=== PATIENT | female | born 1995 | race Caucasian/White ===

== ENCOUNTER 2021-09-27 19:53 | Emergency (ER) | payer OTHER, MEDICAID, SELFPAY ==
[2021-09-27 19:57] VITALS: BP 145/81; PULSE 83; RESP 18; TEMP 36.4; O2SAT 97
[2021-09-27] MEDS: TET,DIPH,PERTUSS(ACELL),VAC/PF 0.5 ML SYRINGE IM (20:03)
== END 2021-09-28 00:26 | disposition left against medical advice (07) ==
PROVIDERS: Emergency Provider Emergency Medicine
DX: Z23 Encounter for immunization (principal)
CPT/HCPCS: 90471; 99283; 90715

== ENCOUNTER → 2023-03-10 14:16 | Outpatient (CLI) | payer SELFPAY | PROVIDERS: Visit Provider Physician Assistant | DX: R30.0 Dysuria (principal) | CPT/HCPCS: 87086 ==

== ENCOUNTER → 2023-03-13 10:39 | Outpatient (CLI) | payer SELFPAY ==
[2023-03-13 12:35] LABS: Urine N gonorrhoeae NOT DETECTED
[2023-03-13 12:38] LABS: Urine Chlamydia NOT DETECTED
== END ==
PROVIDERS: Visit Provider Nurse Practitioner Family
DX: Z11.3 Encounter for screening for infections with a predominantly sexual mode of transmission (principal); R30.0 Dysuria; N89.8 Other specified noninflammatory disorders of vagina
CPT/HCPCS: 87086; 87210; 87491; 87591

== ENCOUNTER 2023-06-14 15:06 | Emergency (ER) | payer BC, SELFPAY ==
[2023-06-14 15:39] VITALS: BP 162/95; PULSE 120; RESP 16; TEMP 37.6; O2SAT 99; BMI 40.3
[2023-06-14 17:16] LABS: Add Manual Diff / Slide Review NO; Basophils Absolute Auto 100 /uL (0-100); Basophils Percent Auto 0.6 % (0-2); Eosinophils Absolute Auto 0 /uL (0-450); Eosinophils Percent Auto 0.2 % (2-4); Hematocrit 39.4 % (36-46); Hemoglobin 13.2 g/dL (12.0-16.0); Lymphocytes Absolute Auto 2400 /uL (1100-4500); Lymphocytes Percent Auto 16.5 % (25-40); Mean Corpuscular HGB Conc 33.5 % (30-36); Mean Corpuscular Hemoglobin 30.4 PG (26-34); Mean Corpuscular Volume 90.8 fL (80-100); Monocytes Absolute Auto 700 /uL (0-900); Monocytes Percent Auto 4.4 % (3-14); Neutrophils Absolute Auto 11600 /uL (1500-7000); Neutrophils Percent Auto 78.3 % (50-75); Platelet Count 304 X10^3/uL (150-400); Red Blood Cell Count 4.34 X10^6/uL (4.0-5.2); Red Cell Distribution Width 13.2 % (11.6-14.8); White Blood Cell Count 14.8 X10^3/uL (4.5-11.0)
[2023-06-14] MEDS: SODIUM CHLORIDE 0.9% 1,000 ML 1000 ML IV (17:20)
--- NOTE | 2023-06-14 17:21 | ED.SKABFB ---
HPI - Skin/Abscess/Foreign Bdy General Chief complaint: Skin/Abscess/Foreign Body Stated complaint: painful lump under lt armpit Time Seen by Provider: 06/14/23 15:54 Source: patient Mode of arrival: Ambulatory History of Present Illness HPI narrative: 27-year-old female presents for painful swelling underneath left armpit. She states she thought it was an ingrown hair or a pimple but it quickly spread and has gotten worse. She decided to present today for evaluation. Denies fevers or chills. 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[employer]) Smoking Status: Never smoker Smoking Status: Never smoker alcohol intake frequency: holidays/special occasions only Substance Use Type: marijuana Exam Initial Vital Signs Initial Vital Signs: Vital Signs Temperature 99.7 F H 06/14/23 15:39 Pulse Rate 120 H 06/14/23 15:39 Respiratory Rate 16 06/14/23 15:39 Blood Pressure 162/95 H 06/14/23 15:39 Pulse Oximetry 99 06/14/23 15:39 Oxygen Delivery Method Room Air 06/14/23 15:39 Const: Awake, alert, no acute distress, nontoxic appearing MSK: Atraumatic, full range of motion, pulses equal Skin: Warm, Dry, palm sized area of cellulitis underneath left armpit, no abscess, no drainage Neuro: AO x3, CN II-XII grossly intact, moves all extremities Course Orders Ordered: Discontinued Medications Sodium Chloride (Normal Saline 0.9%) 1,000 mls @ 1,000 mls/hr IV BOLUS ONE Stop: 06/14/23 18:08 Last Infusion: 06/14/23 17:40 Dose: 0 mls/hr Documented By: Admin: 06/14/23 17:20 Dose: 1,000 mls/hr Documented By: WALTER Morphine Sulfate (Morphine 4 Mg/Ml Inj) 4 mg IV NOW ONE Stop: 06/14/23 15:55 Last Admin: 06/14/23 17:22 Dose: Not Given Documented By: WALTER Oxycodone HCl (Oxycodone Ir 5 Mg Tablet) 5 mg PO NOW ONE Stop: 06/14/23 17:22 Last Admin: 06/14/23 17:35 Dose: 5 mg Documented By: WALTER Vital Signs Vital signs: Vital Signs - 8 hr 06/14/23 15:39 Temperature 99.7 F H Pulse Rate 120 H Respiratory Rate 16 Blood Pressure 162/95 H Pulse Oximetry 99 Oxygen Delivery Method Room Air MDM - Skin/Abscess/Foreign Bdy Differential Diagnosis Differential diagnosis: Likely abscess of skin or subcutaneous tissue, viral exanthem and dermatophytosis Lab Data 06/14/23 16:03 06/14/23 16:03 Labs: Lab Results 06/14/23 Range/Units 16:03 WBC 14.8 H (4.5-11.0) X10^3/uL RBC 4.34 (4.0-5.2) X10^6/uL Hgb 13.2 (12.0-16.0) g/dL Hct 39.4 (36-46) % MCV 90.8 (80-100) fL MCH 30.4 (26-34) PG MCHC 33.5 (30-36) % RDW 13.2 (11.6-14.8) % Plt Count 304 (150-400) X10^3/uL Neut % (Auto) 78.3 H (50-75) % Lymph % (Auto) 16.5 L (25-40) % [place] % (Auto) 4.4 (3-14) % Eos % (Auto) 0.2 L (2-4) % Baso % (Auto) 0.6 (0-2) % Neut # (Auto) 37816 H (6589-3271) /uL Lymph # (Auto) 2400 (6746-1334) /uL [place] # (Auto) 700 (0-900) /uL Eos # (Auto) 0 (0-450) /uL Baso # (Auto) 100 (0-100) /uL Sodium 137 (137-145) mmol/L Potassium 3.8 (3.4-5.1) mmol/L Chloride 105 (98-107) mmol/L Carbon Dioxide 27 (22-32) mmol/L BUN 10 (7-17) mg/dL Creatinine 0.69 (0.52-1.04) mg/dL Estimated GFR > 60 (>60) mL/min BUN/Creatinine Ratio 14.5 (6-22) Glucose 134 H (70-100) mg/dL Lactate 0.8 (0.7-2.1) mmol/L Calcium 9.7 (8.4-10.2) mg/dL Total Bilirubin 1.3 (0.2-1.3) mg/dL AST 29 (14-36) IU/L ALT 26 (<35) IU/L Alkaline Phosphatase 54 (38-126) U/L Total Protein 8.5 H (6.3-8.2) g/dL Albumin 4.6 (3.5-5.0) g/dL Globulin 3.9 (1.7-4.1) g/dL Albumin/Globulin Ratio 1.2 (1.0-2.8) Procalcitonin 0.05 (<0.5) ng/mL Point of Care Testing Test Results Negative Urine Dip Bedside Urine Glucose Negative Bedside Urine Bilirubin - Negative Bedside Urine Ketone ++ 40 Urine Specific [place] 1.030 Bedside Urine Occult Blood - Negative Bedside Urine pH 6.0 Bedside Urine Protein - Negative Bedside Urine Urobilinogen - Negative Bedside Urine Nitrite - Negative Bedside Urine Leukocytes - Negative Esterase MDM Narrative Medical decision making narrative: Cellulitis under left under arm. No evidence of abscess or hidradenitis. Point of care ultrasound shows no underlying fluid collection that would be amenable to drainage. Patient counseled on lab findings, discharge on antibiotics. Counseled to draw a margin around the red area and to return if it worsens despite antibiotic treatment Discharge Plan Departure Patient Disposition: Home Clinical Impression: Cellulitis Instructions: DI for Cellulitis -- Adult Activity Restrictions/Additional Instructions: Draw a margin around the red area and keep track of it to see if it spreads. If it spreads outside of the margins please return to the emergency department for evaluation. Prescriptions: New cephalexin 500 mg capsule 500 mg PO QID Qty: 20 0RF Referrals: Meg Sullivan MD [Primary Care Provider] - Stand Alone Forms: Patient Portal/API
[2023-06-14 17:22] LABS: Lactate (Lactic Acid) 0.8 mmol/L (0.7-2.1)
[2023-06-14 17:23] LABS: Alanine Aminotransferase 26 IU/L (<35); Albumin 4.6 g/dL (3.5-5.0); Albumin Globulin Ratio 1.2 (1.0-2.8); Alkaline Phosphatase 54 U/L (38-126); Aspartate Aminotransferase 29 IU/L (14-36); BUN Creatinine Ratio 14.5 (6-22); Bilirubin Total 1.3 mg/dL (0.2-1.3); Blood Urea Nitrogen 10 mg/dL (7-17); Calcium 9.7 mg/dL (8.4-10.2); Carbon Dioxide 27 mmol/L (22-32); Chloride 105 mmol/L (98-107); Estimated Glomerular Filt Rate > 60 mL/min (>60); Globulin 3.9 g/dL (1.7-4.1); Glucose 134 mg/dL (70-100); HEMOLYSIS 16 (0-50); Potassium 3.8 mmol/L (3.4-5.1); Sodium 137 mmol/L (137-145); Total Protein 8.5 g/dL (6.3-8.2)
[2023-06-14] MEDS: OXYCODONE IR 5 MG TABLET PO (17:35)
[2023-06-14 17:36] VITALS: BP 169/97; PULSE 104; RESP 16; TEMP 37; O2SAT 100
--- NOTE | 2023-06-14 17:38 | PC.NURSE ---
Pt has redness and slight swelling to left armpit. Pt reports this came on recently and denies shaving, wearing tight clothes, or missing showers.
[2023-06-14 17:39] LABS: Procalcitonin 0.05 ng/mL (<0.5)
== END 2023-06-14 17:40 | disposition home or self-care (01) ==
PROVIDERS: Emergency Provider Emergency Medicine; PCP Family Medicine
DX: L03.112 Cellulitis of left axilla (principal)
CPT/HCPCS: 80053; 81003; 81025; 83605; 84145; 85025; 99283

== ENCOUNTER → 2023-08-03 14:39 | Outpatient (CLI) | payer BC, SELFPAY ==
--- NOTE | 2023-08-03 14:41 | DI.RAD.S_ITS ---
PROCEDURE: XR FOOT RT MIN 3V INDICATIONS: Right foot pain TECHNIQUE: 3 views of the foot were acquired. COMPARISON: None. FINDINGS: Bones: No fractures or dislocations. No suspicious bony lesions. Plantar calcaneal enthesophyte. Soft tissues: No tibiotalar joint effusion. Achilles tendon appears normal. IMPRESSION: No acute osseous abnormality. If pain persists with conservative management, consider repeat x-ray in 10-14 days or cross-sectional imaging. Dictated by: Kiet Clement M.D. on 08/03/2023 at 16:45 Approved by: Kiet Clement M.D. on 08/03/2023 at 16:45
== END ==
PROVIDERS: PCP Family Medicine; Referring Provider Nurse Practitioner Family; Visit Provider Nurse Practitioner Family
DX: M77.31 Calcaneal spur, right foot (principal); M79.671 Pain in right foot
CPT/HCPCS: 73630

== ENCOUNTER → 2023-08-24 12:33 | Outpatient (CLI) | payer BC, SELFPAY ==
[2023-08-24 13:44] LABS: Add Manual Diff / Slide Review NO; Basophils Absolute Auto 100 /uL (0-100); Basophils Percent Auto 0.9 % (0-2); Eosinophils Absolute Auto 200 /uL (0-450); Eosinophils Percent Auto 3.4 % (2-4); Hematocrit 39.4 % (36-46); Hemoglobin 13.3 g/dL (12.0-16.0); Lymphocytes Absolute Auto 2500 /uL (1100-4500); Lymphocytes Percent Auto 37.6 % (25-40); Mean Corpuscular HGB Conc 33.7 % (30-36); Mean Corpuscular Hemoglobin 30.8 PG (26-34); Mean Corpuscular Volume 91.3 fL (80-100); Monocytes Absolute Auto 300 /uL (0-900); Monocytes Percent Auto 4.6 % (3-14); Neutrophils Absolute Auto 3600 /uL (1500-7000); Neutrophils Percent Auto 53.5 % (50-75); Platelet Count 299 X10^3/uL (150-400); Red Blood Cell Count 4.32 X10^6/uL (4.0-5.2); Red Cell Distribution Width 11.8 % (11.6-14.8); White Blood Cell Count 6.7 X10^3/uL (4.5-11.0)
[2023-08-24 14:03] LABS: Erythrocyte Sedimentation Rate 25 MM/HR (0-20)
[2023-08-24 14:05] LABS: Appearance Urine UA CLEAR; Bilirubin Urine UA NEGATIVE (NEGATIVE); Color Urine UA YELLOW; Glucose Urine UA NEGATIVE (Negative); Ketones Urine UA NEGATIVE (NEGATIVE); Leukocyte Esterase Urine UA TRACE (NEGATIVE); Nitrite Urine UA NEGATIVE (Negative); Occult Blood Urine UA NEGATIVE (Negative); Protein Urine UA NEGATIVE (Negative); Specific Gravity Urine UA 1.025 (1.000-1.035); Urobilinogen Urine UA 0.2 E.U./dL (0.2)
[2023-08-24 14:07] LABS: Alanine Aminotransferase 19 IU/L (<35); Albumin 4.3 g/dL (3.5-5.0); Albumin Globulin Ratio 1.3 (1.0-2.8); Alkaline Phosphatase 50 U/L (38-126); Aspartate Aminotransferase 25 IU/L (14-36); BUN Creatinine Ratio 14.7 (6-22); Bilirubin Total 0.9 mg/dL (0.2-1.3); Blood Urea Nitrogen 11 mg/dL (7-17); Calcium 8.9 mg/dL (8.4-10.2); Carbon Dioxide 24 mmol/L (22-32); Chloride 107 mmol/L (98-107); Estimated Glomerular Filt Rate > 60 mL/min (>60); Globulin 3.4 g/dL (1.7-4.1); Glucose 105 mg/dL (70-100); HEMOLYSIS < 15 (0-50); Potassium 4.4 mmol/L (3.4-5.1); Sodium 138 mmol/L (137-145); Total Protein 7.7 g/dL (6.3-8.2); Uric Acid 4.8 mg/dL (2.5-6.2)
[2023-08-24 14:18] LABS: Rheumatoid Factor < 8.6 IU/mL (<12.0)
[2023-08-24 14:36] LABS: Thyroid Stimulating Hormone 0.535 uIU/mL (0.47-4.68)
[2023-08-24 15:06] LABS: Bacteria Urine Many (>30); Culture Indicated Urine Cult Not Indicated; RBC Urine None Seen (0-5/HPF); Squamous Epithelial Cell Urine 1-5 /HPF (0-5/HPF); Urine Volume 10mL (spun); WBC Urine 1-5/HPF (0-5/HPF)
[2023-08-26 10:40] LABS: CCP Antibodies IgG/IgA 0 units (0-19)
== END ==
PROVIDERS: PCP Family Medicine; Referring Provider Family Medicine; Visit Provider Family Medicine
DX: M25.50 Pain in unspecified joint (principal); R82.71 Bacteriuria
CPT/HCPCS: 36415; 80053; 81001; 84443; 84550; 85025; 85651; 86200; 86430; 87086

== ENCOUNTER → 2023-08-24 16:45 | Outpatient (CLI) | payer BC, SELFPAY ==
[2023-08-29 14:09] LABS: ANA Screen, IFA Negative (.)
== END ==
PROVIDERS: PCP Family Medicine; Referring Provider Family Medicine; Visit Provider Family Medicine
DX: M79.641 Pain in right hand (principal); M79.642 Pain in left hand; M25.541 Pain in joints of right hand; M25.542 Pain in joints of left hand; R70.0 Elevated erythrocyte sedimentation rate; R82.71 Bacteriuria
CPT/HCPCS: 36415; 80053; 81001; 84443; 84550; 85025; 85651; 86038; 86200; 86430; 87086

== ENCOUNTER → 2025-02-03 15:44 | Outpatient (CLI) | payer BC, SELFPAY ==
[2025-02-03 17:52] LABS: GTT (PREG) 1 Hour PP 50gm Dose 87 mg/dL (76-139)
[2025-02-03 17:53] LABS: Add Manual Diff / Slide Review NO; Hematocrit 37.6 % (36-46); Hemoglobin 12.8 g/dL (12.0-16.0); Lymphocytes Absolute Auto 2700 /uL (1100-4500); Mean Corpuscular HGB Conc 34.0 % (30-36); Mean Corpuscular Hemoglobin 30.7 PG (26-34); Mean Corpuscular Volume 90.2 fL (80-100); Platelet Count 304 X10^3/uL (150-400)
[2025-02-03 17:54] LABS: Alanine Aminotransferase 23 IU/L (<35); Albumin 3.9 g/dL (3.5-5.0); Albumin Globulin Ratio 1.3 (1.0-2.8); Alkaline Phosphatase 47 U/L (38-126); Blood Urea Nitrogen 8 mg/dL (7-17); Calcium 9.2 mg/dL (8.4-10.2); Carbon Dioxide 21 mmol/L (22-32); Chloride 106 mmol/L (98-107); Estimated Glomerular Filt Rate > 60 mL/min (>60); Globulin 3.1 g/dL (1.7-4.1); Glucose 89 mg/dL (70-99); HEMOLYSIS < 15 (0-50); Potassium 4.2 mmol/L (3.4-5.1); Sodium 137 mmol/L (137-145); Total Protein 7.0 g/dL (6.3-8.2)
[2025-02-03 17:58] LABS: Hemoglobin A1C% w Est Avg Glu 5.1 % (4.0-6.0)
[2025-02-04 15:20] LABS: HIV 1 & 2 Ab/Ag 4th Gen Combo NEGATIVE (NEGATIVE); Hep C Virus Ab w/Reflex Quant NEGATIVE s/c (NEGATIVE); Hepatitis B Surface Antigen NEGATIVE s/c (NEGATIVE)
== END ==
PROVIDERS: PCP Family Medicine; Referring Provider Family Medicine; Visit Provider Family Medicine
DX: O99.211 Obesity complicating pregnancy, first trimester (principal); E66.09 Other obesity due to excess calories
CPT/HCPCS: 36415; 80053; 80055; 82950; 83036; 86787; 86803; 86850; 86900; 86901; 87389

== ENCOUNTER → 2025-02-24 06:59 | Outpatient (CLI) | payer BC, SELFPAY ==
--- NOTE | 2025-02-24 07:00 | DI.US.S_ITS ---
PROCEDURE: US OB >= 14 WEEKS FETUS INDICATIONS: Encounter for other specified screening OUTSIDE/PRIOR DATING DATA: Working DIANE: 07/16/2025 TECHNIQUE: Real-time scanning was performed of the fetus, with image documentation and biometric measurements. Endovaginal scanning: Not performed COMPARISON: None. FINDINGS: General: A single living intrauterine gestation is present. Presentation: Variable. Placenta: Placental position is posterior , without previa. Amniotic fluid index: 11.7 cm, normal range is 5-24 cm. Single deepest vertical pocket is 3.4 cm. heart rate: 157 per minute. Maternal cervical canal: 3.8 cm long. Normal lower limit is 2.5 cm. biometrics: Biparietal diameter: 4.5 centimeters, 19 weeks 5 days Head circumference: 17.5 centimeters, 20 weeks Abdominal circumference: 14.1 centimeters, 19 weeks 3 days Femur length: 3.2 centimeters, 19 weeks 6 days Clinically estimated gestational age: 20 weeks 2 days Composite gestational age from present scan: 19 weeks, 5 days Estimated weight and percentile: 306 grams, 16th percentile Anatomic survey: Neuro: Ventricles are non-dilated at less than 10 mm. Cisterna magna is normal at 3-11 mm. Cerebellum is normal in size and morphology. Nuchal skin fold: Normal at less than 6 mm between 14-21 weeks gestational age. Face: Not well visualized. Spine: No evidence for spina bifida. Heart: Not well visualized. Diaphragm: Not well visualized. Stomach: Left-sided stomach is present. Kidneys: No hydronephrosis. Normal is less than 5 mm in 2nd trimester, less than 7 mm in 3rd trimester. Cord: 3-vessel cord has orthotopic insertion. Bladder: Normal in size. Extremities: All 4 extremities identified. IMPRESSION: Single living intrauterine at 20 weeks 2 days, DIANE of 07/16/2025. Estimated weight of 306 grams, 16th percentile. Facial profile, diaphragm and heart views are suboptimally visualized. Recommend short-term follow-up. We strive to produce accurate, complete, and clear reports of imaging services. To assist us in improving patient care, this report was composed using standard report templates and voice recognition software. Therefore, it may contain abnormal punctuation, insertions and/or omissions. Occasional wrong-word or sound-alike substitutions may occur. Though we review the report and make efforts to correct it, we do recommend that the report be read carefully in proper context to recognize any text inaccuracies. Dictated by: Silverio Peck M.D. on 02/24/2025 at 12:20 Approved by: Silverio Peck M.D. on 02/24/2025 at 12:27
== END ==
LOC: US 07:00
PROVIDERS: PCP Family Medicine; Referring Provider Family Medicine; Visit Provider Family Medicine
DX: Z36.89 Encounter for other specified antenatal screening (principal); Z3A.20 20 weeks gestation of pregnancy
CPT/HCPCS: 76811

== ENCOUNTER → 2025-02-25 15:57 | Outpatient (CLI) | payer BC, SELFPAY ==
[2025-02-25 18:49] LABS: Appearance Urine UA CLEAR; Bilirubin Urine UA NEGATIVE (NEGATIVE); Color Urine UA YELLOW; Glucose Urine UA NEGATIVE (Negative); Ketones Urine UA TRACE (NEGATIVE); Leukocyte Esterase Urine UA NEGATIVE (NEGATIVE); Nitrite Urine UA NEGATIVE (Negative); Occult Blood Urine UA NEGATIVE (Negative); Protein Urine UA NEGATIVE (Negative); Specific Gravity Urine UA 1.025 (1.000-1.035); Urobilinogen Urine UA 0.2 E.U./dL (0.2)
[2025-02-25 19:39] LABS: pH Urine UA 6.0 (4.5-8.0)
[2025-02-25 19:40] LABS: Culture Indicated Urine Cult Not Indicated
[2025-02-25 19:41] LABS: Urine N gonorrhoeae NOT DETECTED
[2025-02-25 19:42] LABS: Urine Chlamydia NOT DETECTED
== END ==
PROVIDERS: PCP Family Medicine; Visit Provider Family Medicine
DX: Z34.80 Encounter for supervision of other normal pregnancy, unspecified trimester (principal)
CPT/HCPCS: 81001; 87086; 87491; 87591